=== PATIENT | female | born 1985 | race Caucasian/White ===

== ENCOUNTER → 2021-02-26 | Outpatient (CLI) | payer OTHER ==
[~2021-02-26] MED LIST: LEVOXYL0.075 MG PO
== END ==
LOC: COL.RAD 10:57
DX: G44.89 Other headache syndrome (principal)
CPT/HCPCS: Q9967

== ENCOUNTER → 2021-07-24 | Outpatient (CLI) | payer OTHER | LOC: COL.RAD 13:01 | DX: R07.9 Chest pain, unspecified (principal); R79.1 Abnormal coagulation profile | CPT/HCPCS: Q9967 ==

== ENCOUNTER → 2024-01-13 | Outpatient (CLI) | payer OTHER | LOC: MC.RAD 07:24 | DX: Z12.31 Encounter for screening mammogram for malignant neoplasm of breast (principal) ==